=== PATIENT | female | born 1995 | race African-American/Black ===

== ENCOUNTER 2017-07-26 13:41 | Emergency (ER) | payer MEDICAID ==
[~2017-07-26] VITALS: Ht 170.2 cm; Wt 68.0 kg
[2017-07-26 16:25] VITALS: BP 118/70
== END 2017-07-26 17:40 | disposition home or self-care (01) ==
LOC: ER 13:43
DX: R05 Cough (principal); R09.3 Abnormal sputum; R07.89 Other chest pain
CPT/HCPCS: 71045; 81025; 93005; 99284

== ENCOUNTER 2017-11-01 03:33 | Emergency (ER) | payer MEDICAID ==
[~2017-11-01] VITALS: Ht 167.6 cm; Wt 71.0 kg
[2017-11-01] MEDS ORDERED: DIPHENHYDRAMINE 25MG CAPSULE PO ONE (08:45)
[2017-11-01] MEDS ORDERED: PREDNISONE 20MG TABLET PO ONE (08:45)
[2017-11-01 09:18] VITALS: BP 99/63
== END 2017-11-01 09:22 | disposition home or self-care (01) ==
LOC: ER 04:54
DX: T78.40XA Allergy, unspecified, initial encounter (principal); X58.XXXA Exposure to other specified factors, initial encounter
CPT/HCPCS: 99283; J7512; Q0163

== ENCOUNTER 2020-10-10 01:20 | Emergency (ER) | payer MEDICAID ==
[~2020-10-10] VITALS: Ht 170.2 cm; Wt 82.0 kg
[2020-10-10 01:22] VITALS: BP 129/76
== END 2020-10-10 02:22 | disposition home or self-care (01) ==
LOC: ER 01:20
DX: R43.0 Anosmia (principal)
CPT/HCPCS: 99281

== ENCOUNTER 2020-11-20 23:46 | Emergency (ER) | payer MEDICAID ==
[~2020-11-20] VITALS: Ht 170.2 cm; Wt 78.0 kg
[2020-11-21 00:10] VITALS: BP 122/72
[2020-11-21] MEDS ORDERED: BENZ-16 MT (03:02)
== END 2020-11-21 04:03 | disposition home or self-care (01) ==
LOC: ER 23:46
DX: R05 Cough (principal); R07.89 Other chest pain
CPT/HCPCS: 71045; 99283

== ENCOUNTER 2021-11-17 11:26 | Emergency (ER) | payer MEDICAID ==
[~2021-11-17] VITALS: Ht 170.2 cm; Wt 86.0 kg
[~2021-11-17 11:26] MED LIST: BENZ-16 MT
[2021-11-17] MEDS ORDERED: ACETAMINOPHEN 325MG TABLET PO ONE (12:15)
[2021-11-17] MEDS ORDERED: SODIUM CHLORIDE 0.9% 1,000 ML IV ONE (12:30)
[2021-11-17] MEDS ORDERED: METOCLOPRAMIDE HCL 10MG/2ML VIAL IV ONE (12:30)
[2021-11-17 12:37] LABS: BASOPHILS % 0.2 % (0.0-2.0); EOSINOPHILS % 0.9 % (0.0-5.0); HEMATOCRIT. 34.7 % (36.0-48.0); LYMPHOCYTES % 18.3 % (20.0-50.0); MEAN CORPUSCULAR HEMOGLOBIN 23.3 pg (28.0-32.0); MEAN CORPUSCULAR VOLUME 73.5 fL (81.0-99.0); MEAN PLATELET VOLUME 8.4 fl (7.4-10.4); MONOCYTES % 5.5 % (2.0-8.0); NEUTROPHILS % 75.1 % (40.0-76.0); PLATELET 225 x1000/uL (130-400); RED BLOOD CELL COUNT 4.73 mill/uL (4.2-5.4); RED CELL DISTRIBUTION WIDTH 13.8 % (11.6-14.6)
[2021-11-17 12:47] LABS: CHLORIDE 102 mEq/L (98-107)
[2021-11-17 13:09] LABS: B-HCG QUANTITATIVE 27638 mIU/mL (<3)
[2021-11-17 15:44] LABS: CLARITY URINE CLEAR (CLEAR); COLOR URINE YELLOW (YELLOW); KETONES URINE 2+ (NEGATIVE); LEUKOCYTE ESTERASE URINE 3+ (NEGATIVE); NITRITE URINE NEGATIVE (NEGATIVE); OCCULT BLOOD URINE NEGATIVE (NEGATIVE); PH URINE 6.5 (4.5-8.0); PROTEIN URINE NEGATIVE (NEGATIVE); SPECIFIC GRAVITY URINE 1.016 (1.005-1.030); UROBILINOGEN URINE 0.2 E.U./dL (0.2-1.0)
[2021-11-17] MEDS ORDERED: CEPH250C2 MT (16:46)
[2021-11-17 16:57] VITALS: BP 128/84
== END 2021-11-17 17:00 | disposition home or self-care (01) ==
LOC: ER 11:40
DX: O26.892 Other specified pregnancy related conditions, second trimester (principal); R51.9 Headache, unspecified; O23.42 Unspecified infection of urinary tract in pregnancy, second trimester; N39.0 Urinary tract infection, site not specified; E87.1 Hypo-osmolality and hyponatremia; Z3A.17 17 weeks gestation of pregnancy
CPT/HCPCS: 36415; 76805; 80053; 81003; 84702; 85025; 96360; 99284; J7030